=== PATIENT | male | born 1960 | race Caucasian/White ===

== ENCOUNTER 2017-03-23 04:24 | Emergency (ER) | payer MEDICAID ==
[~2017-03-23] VITALS: Ht 175.3 cm; Wt 120.3 kg
[2017-03-23] MEDS ORDERED: KETOROLAC 60MG/2ML VIAL IM ONE (06:30)
[2017-03-23] MEDS ORDERED: DIAZEPAM 5 MG TABLET PO ONE (08:00)
[2017-03-23 08:45] VITALS: BP 146/83
== END 2017-03-23 08:57 | disposition home or self-care (01) ==
LOC: ER 04:24
DX: M54.5 Low back pain (principal)
CPT/HCPCS: 72131; 96372; 99284; J1885; Z7610

== ENCOUNTER 2019-07-25 21:01 | Emergency (ER) | payer MEDICAID ==
[~2019-07-25] VITALS: Ht 172.7 cm; Wt 113.0 kg
[2019-07-25] MEDS ORDERED: SODIUM CHLORIDE 0.9% 1,000 ML IV ONE (21:42)
[2019-07-25] MEDS ORDERED: ONDANSETRON HCL 4MG/2ML INJ IV STA (21:42)
[2019-07-25] MEDS ORDERED: MECLIZINE 25MG TABLET PO ONE ×2 (21:45→22:30)
[2019-07-25 21:54] LABS: BASOPHILS % 0.6 % (0.0-2.0); EOSINOPHILS % 2.8 % (0.0-5.0); HEMATOCRIT. 43.1 % (42.0-52.0); HEMOGLOBIN. 14.5 g/dL (14.0-18.0); LYMPHOCYTES % 38.1 % (20.0-50.0); MEAN CORPUSCULAR HEMOGLOBIN 31.3 pg (28.0-32.0); MEAN CORPUSCULAR VOLUME 93.3 fL (80.0-94.0); MEAN PLATELET VOLUME 7.6 fl (7.4-10.4); MONOCYTES % 6.6 % (2.0-8.0); NEUTROPHILS % 51.9 % (40.0-76.0); PLATELET 201 x1000/uL (130-400); RED BLOOD CELL COUNT 4.62 mill/uL (4.7-6.1); RED CELL DISTRIBUTION WIDTH 13.9 % (11.6-14.6)
[2019-07-25 22:01] LABS: CHLORIDE 106 mEq/L (98-107)
[2019-07-25 22:05] LABS: ETHANOL BLOOD < 10 mg/dL
[2019-07-26 00:14] LABS: *AMPHETAMINES SCREEN URINE NEGATIVE (NEGATIVE)
[2019-07-26 00:15] LABS: *BARBITURATES SCREEN URINE NEGATIVE (NEGATIVE); *BENZODIAZEPINES SCREEN URINE NEGATIVE (NEGATIVE); *COCAINE SCREEN URINE NEGATIVE (NEGATIVE); CANNABINOID URINE SCREEN NEGATIVE (NEGATIVE); METHADONE URINE SCREEN NEGATIVE (NEGATIVE); PHENCYCLIDINE URINE SCREEN NEGATIVE (NEGATIVE)
[2019-07-26] MEDS ORDERED: MECLIZINE 25MG TABLET PO ONE (01:45)
[2019-07-26 06:00] VITALS: BP 103/35
[2019-07-29 17:55] LABS: OPIATES URINE SCREEN NEGATIVE (NEGATIVE)
== END 2019-07-26 07:33 | disposition home or self-care (01) ==
LOC: ER 21:01
DX: R11.2 Nausea with vomiting, unspecified (principal); R42 Dizziness and giddiness; R00.1 Bradycardia, unspecified; I10 Essential (primary) hypertension; Z96.651 Presence of right artificial knee joint; Z98.890 Other specified postprocedural states
CPT/HCPCS: 36415; 70450; 71045; 80053; 80305; 80320; 83690; 83880; 84443; 84484; 85025; 93005; 96361; 96374; 99285; J2405; J7030; J8597; G0480